=== PATIENT | female | born 1970 | race Caucasian/White ===

== ENCOUNTER 2016-09-08 19:25 | Inpatient (IN) | payer OTHER ==
--- NOTE | ~2016-09-08 | DS ---
Discharge Summary [facility] [address] [place]. [address] NAME: DOMENICO STUART : 72 STATUS : DIS IN PAT#: [id number] AGE: 46 ADM/REG DATE : 09/09/16 MR#: [id number] REPORT SERV DATE: 09/14/16 DICTATED BY: ISA LUI DATE: 09/13/16 REPORT STATUS : Draft TRANSCRIBED BY: MODL DATE: 09/13/16 ADMISSION DATE: 09/09/2016 DISCHARGE DATE: 09/13/2016 HOSPITAL COURSE: This is a 46-year-old, female. She has an unfortunate history of MTHFR gene mutation and factor V Leiden, predisposing the DVT/PE 13 years ago, at that time it was quite severe, mural thrombus necessitating open-heart surgery to remove a large cardiac blood clot years ago, diabetes, hypertension, anxiety, appendectomy, cholecystectomy, , significant smoking history, quit smoking a week prior to admission. The patient came in with increasing throat pain, hoarseness of voice, recurrent aspiration, 12-pound weight loss. She recently saw ENT physician in [place], due to inflammation was not able to do a biopsy at that time. There was evidence of some aspiration per speech pathologist subsequently on 09/06/2016, as a result she came in here. CT of the neck showed significant enlargement, abnormality, epiglottis. 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 Dr. 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 The patient thereafter had hemostasis and was determined to be able to go home. She has significant chronic pain management for low back pain, on hydrocodone at baseline, as a result as needed oxycodone sustained release here. Her white count went down. The patient is amenable for discharge with better adequate pain control today. She should follow up with [facility] and Dr. Oseguera within one to two weeks. I will have Speech and Swallow Therapy see the patient regarding swallow recommendations. She will be resumed back on her Coumadin now regarding her history of DVT/PE. Consider possible IVC filter if she were to ever bleed despite need for anticoagulation given factor V Leiden, etc. DISCHARGE MEDICATIONS: 1. Augmentin 825 mg p.o. b.i.d. for five days. 2. Januvia 50 mg p.o. q.h.s. 3. Carvedilol 6.25 mg p.o. b.i.d. 4. Lasix 80 mg p.o. daily. 5. Nicotine transdermal patch 20 mg patch daily. 6. Oxycodone Sustained Release 10 mg p.o. b.i.d. 7. Coumadin see order set. 8. Hurley 10/325 mg p.o. q.6 p.r.n. 9. Aspirin 81 mg p.o. daily. 10.Xanax 0.25 mg p.o. daily p.r.n. 11.Losartan 25 mg p.o. q.h.s. The patient had endorsed she may have had a history of stroke if that is the case she needs to be on statin, deferred her PCP. We will also have home health evaluate regarding an INR goal of 2 to 3. Discharge Summary [address] [address] NAME: DOMENICO STUART : 72 STATUS : DIS IN PAT#: [id number] AGE: 46 ADM/REG DATE : 09/09/16 MR#: [id number] REPORT SERV DATE: 09/14/16 DICTATED BY: ISA LUI DATE: 09/13/16 REPORT STATUS : Draft TRANSCRIBED BY: MODL DATE: 09/13/16 CONSULTS: ENT. PROCEDURES: See above. DISCHARGE DIAGNOSES: 1. Squamous cell carcinoma of the larynx. 2. Diabetes. 3. History of pulmonary embolism/deep venous thrombosis due to Factor V Leiden. 4. Hypertension. 5. Systemic inflammatory response syndrome. 6. Chronic pain. It took over 30 minutes to do. DICTATED BY: Isa Lui DO WST/ROBIN Isa Lui DO / [id number] CC: Isa Lui DO
--- NOTE | ~2016-09-08 | OP ---
Record Of Operation [facility] [address] [place]. [address] NAME: DOMENICO STUART : 72 STATUS : ADM IN PAT#: [id number] AGE: 46 ADM/REG DATE : 09/09/16 MR#: [id number] REPORT SERV DATE: 09/12/16 DICTATED BY: SOHAN FALCON DATE: 09/11/16 REPORT STATUS : Draft TRANSCRIBED BY: MODL DATE: 09/11/16 DATE OF PROCEDURE: 09/09/2016 PREOPERATIVE DIAGNOSIS: T3 N2c Mx squamous cell carcinoma of the supraglottic larynx. POSTOPERATIVE DIAGNOSIS: T3 N2c Mx squamous cell carcinoma of the supraglottic larynx. PROCEDURE: 1. Microdirect laryngoscopy with biopsy of the supraglottic larynx. 2. Rigid bronchoscopy. SURGEON: Sohan Falcon M.D. ANESTHESIA: General. COMPLICATIONS: None. COUNTS: All counts correct following the procedure. ESTIMATED BLOOD LOSS: 5 mL. PREOPERATIVE INFORMED CONSENT: We discussed the risks and benefits of surgery including, but not limited to bleeding, infection, possible loss of airway and , and consent is on the chart. PROCEDURE IN DETAIL: The patient was brought to the operative suite and placed on operative table in supine position. General endotracheal anesthesia was initiated without incident. The patient's head and neck was cleaned, prepped, and draped in the usual sterile fashion. Following this, a moistened gauze was placed on the upper gingiva and a Dedo laryngoscope was inserted in the oral cavity, used to inspect the oral cavity, oropharynx which was noted be clear of any mucosal lesions. Base of tongue and vallecula were inspected, and it was noted that the hypopharynx is clear, the base of tongue and vallecula were clear. In the supraglottic larynx, there was noted be a large exophytic lesion involving the left, most of the left half of the laryngeal surface of epiglottis extending onto the left aryepiglottic fold extending down to almost the false vocal folds. The true vocal cords appeared to be normal with no evidence of any mucosal lesions. The subglottic region was then visualized. A 0 degree Poe brigette was placed through the laryngoscope and the cuff was deflated on the endotracheal tube. The scope was advanced down both mainstem bronchi, and there was no evidence of any mucosal lesion from the gabriele and mainstem bronchi through the trachea. The cuff was reinflated on the endotracheal tube, and then multiple biopsies were taken from the epiglottic lesion. There was minimal bleeding which was controlled with topical Adrenalin on pledgets. The specimen was sent for frozen section, as well as permanent section came back consistent with invasive squamous cell carcinoma. The patient was then awakened by Anesthesia and taken to recovery room in stable condition. Record Of Operation [address] [place]. [address] NAME: DOMENICO STUART : 72 STATUS : ADM IN PAT#: [id number] AGE: 46 ADM/REG DATE : 09/09/16 MR#: [id number] REPORT SERV DATE: 09/12/16 DICTATED BY: SOHAN FALCON DATE: 09/11/16 REPORT STATUS : Draft TRANSCRIBED BY: ROBIN DATE: 09/11/16 SHUN/ROBIN Sohan Falcon M.D. / [id number] CC: Estephanie Sales M.D.
--- NOTE | ~2016-09-08 | HP ---
History And Physical [facility] [address] [place]. [address] NAME: DOMENICO STUART : 72 STATUS : ADM [facility]#: [id number] AGE: 46 ADM/REG DATE : 09/09/16 MR#: [id number] REPORT SERV DATE: 09/09/16 DICTATED BY: BERKLEY SALOMON DATE: 09/09/16 REPORT STATUS : Draft TRANSCRIBED BY: MODL DATE: 09/09/16 DATE OF ADMISSION: 09/09/2016 CHIEF COMPLAINT: A 46-year-old female presenting with increasing throat pain. hoarseness of voice, and now recurrent aspiration. HISTORY OF PRESENTING ILLNESS: The patient's history was obtained through careful interview with the patient and her . The patient first began to notice a soreness in her throat intermittently about 13 months ago, but it was not until the last few months that it has become increasingly debilitating. She has had about a 12-pound weight loss over the last five weeks. Finally, she was able to see an Ear, Nose, and Throat physician in [place], [place], who was able to do a simple scope in the office and states that she had inflammation and abnormality, but did not feel comfortable or was not able to do a biopsy at the time of this investigation, and scheduled her for a followup on 09/25/2016. Also on 09/06/2016, the patient went to a speech pathologist in [place], [place], and had a swallow evaluation that apparently showed some evidence of aspiration. The patient has noticed that she aspirates and chokes on food quite frequently over the last four or five weeks. She also has occasional nausea and vomiting related to irritation of attempts at eating and swallowing food. She describes increasing pain in her throat; a burning, aching pain that she describes "like a blister that you are pouring lemon juice on" up to 9/10 severity, worsened on the left side compared to the right. She has had a nonproductive cough, a deepening of her voice along with hoarseness. She claims her diabetes is under good control. No shortness of breath. No abdominal pain. REVIEW OF SYSTEMS: Otherwise, a 14-point review of systems was obtained and was negative. PAST MEDICAL HISTORY: 1. DVT/pulmonary embolism 13 years ago, quite severe. 2. MTHFR gene mutation and factor V Leiden mutation. 3. Mural thrombus necessitating an open heart surgery to remove a large cardiac blood clot. 4. Congestive heart failure. 5. Diabetes. 6. Hypertension. 7. Anxiety. PAST SURGICAL HISTORY: History And Physical [facility] [address] [place]. [address] NAME: DOMENICO STUART : 72 STATUS : ADM IN PAT#: [id number] AGE: 46 ADM/REG DATE : 09/09/16 MR#: [id number] REPORT SERV DATE: 09/09/16 DICTATED BY: BERKLEY SALOMON DATE: 09/09/16 REPORT STATUS : Draft TRANSCRIBED BY: ROBIN DATE: 09/09/16 1. Reported open-heart surgery to remove an intracardiac blood clot. 2. Appendectomy. 3. Cholecystectomy. 4. . ALLERGIES: CLINDAMYCIN. SOCIAL HISTORY: Quit smoking a week ago, on a nicotine patch. No alcohol use. Is . Lives in [place], [place]. Has four children ages 9, 18, 23, and 27. FAMILY HISTORY: There are multiple family members with pulmonary embolism and hypercoagulable state, a daughter with factor V Leiden, a cousin with pulmonary embolism, sister with pulmonary embolism, maternal aunt with pulmonary embolism, and father with pulmonary embolism. CURRENT MEDICATIONS: Include Xanax 0.5 to 1 mg p.o. b.i.d. as needed, aspirin 81 mg p.o. daily, Coreg 6.25 mg p.o. b.i.d., Lasix 80 mg p.o. daily, hydrocodone p.r.n., nicotine patch, Januvia 50 mg p.o. daily, some blood pressure medication, vitamin D, and Coumadin 5 mg p.o. daily. PHYSICAL EXAMINATION: VITAL SIGNS: Temperature 98.3, pulse 115, blood pressure 130/96, respiratory rate 19, O2 saturation 98% on room air. GENERAL: A pleasant, cooperative female describing distress from sore throat. HEENT: Pupils equal, round, and reactive to light. No conjunctival pallor. No scleral icterus. Nares are patent. Oropharynx is clear of obstruction. No intraoral lesions from superficial exam. NECK: Trachea midline. No thyromegaly. LYMPH: No cervical lymphadenopathy. No supraclavicular lymphadenopathy. RESPIRATORY: Clear to auscultation at bases. No stridor. No wheezes, rales, or rhonchi. Normal respiratory effort. CARDIOVASCULAR: Tachycardic regular rhythm. No murmurs, rubs, or gallops. No extremity edema is appreciated. ABDOMEN: Soft, nontender, nondistended. Normal bowel sounds auscultated throughout. No hepatosplenomegaly. DERMATOLOGICAL: Warm and dry. EXTREMITIES: No pallor, no cyanosis. PSYCHIATRIC: Normal affect. Good mood. Alert and oriented x3. LABORATORY DATA: White blood cell count 12, hemoglobin 14, hematocrit 43, platelets 306. Sodium 138, potassium 3.4, chloride 101, bicarb 31, BUN 16, creatinine 1.06, glucose 143, INR 1.2. Liver enzymes within normal limits. STUDIES: CT scan of the neck shows significant enlargement and abnormality of the epiglottis of undetermined significance and origin. ASSESSMENT AND PLAN: History And Physical [address] [address] NAME: DOMENICO STUART : 72 STATUS : ADM [facility]#: [id number] AGE: 46 ADM/REG DATE : 09/09/16 MR#: [id number] REPORT SERV DATE: 09/09/16 DICTATED BY: BERKLEY SALOMON DATE: 09/09/16 REPORT STATUS : Draft TRANSCRIBED BY: ROBIN DATE: 09/09/16 1. Epiglottis mass with a differential diagnosis of an atypical chronic epiglottitis. We will obtain an Ear, Nose, and Throat consult for biopsy. Check an ESR, CRP, procalcitonin, and place on continuous O2 saturation monitor. 2. Diabetes. Check hemoglobin A1c. Place on sliding scale insulin. 3. Anxiety. P.r.n. benzodiazepines. 4. Aspiration. Have our speech therapist evaluate the patient here. 5. History of pulmonary embolism with an MTHFR gene mutation and factor V Leiden. Subtherapeutic INR right now, but we will hold Coumadin for an epiglottis biopsy and then we will need to likely bridge with heparin IV because of severe history of pulmonary embolism and hypercoagulable state. BRIENL/MODL Berkley Salomon M.D. / [id number] CC: Estephanie Sales M.D.
[2016-09-09 00:02] LABS: BASOPHILS 0.2 %; BASOPHILS ABSOLUTE 0.03 10/3/uL (0.0-0.16); EOSINOPHILS 2.8 %; EOSINOPHILS ABSOLUTE 0.34 10/3/uL (0.0-0.53); ER CBC TAT 0 Hrs 05 Mins; HEMOGLOBIN 14.5 g/dL (12.0-16.0); IMMATURE GRANULOCYTES 0.2 %; IMMATURE GRANULOCYTES ABSOLUTE 0.02 10/3/uL (0.0-0.11); LYMPHOCYTES 32.3 %; LYMPHOCYTES ABSOLUTE 3.88 10/3/uL (0.67-4.30); MANUAL DIFF NO %; MEAN CORPUS HGB CONC 33.7 g/dL (32.0-36.0); MEAN CORPUSCULAR HEMOGLOB 30.8 pg (26.0-34.0); MEAN CORPUSCULAR VOLUME 91.3 fL (80-100); MEAN PLATELET VOLUME 10.1 fL (9.2-13.0); MONOCYTES 4.2 %; MONOCYTES ABSOLUTE 0.51 10/3/uL (0.21-1.20); NEUTROPHILS 60.3 %; NEUTROPHILS ABSOLUTE 7.25 10/3/uL (2.02-8.40); PLATELET COUNT 306 10/3/uL (150-400); RBC DISTRIBUTION WIDTH 14.2 % (12.0-16.0); RED CELL COUNT 4.71 10/6/uL (4.0-5.6)
[2016-09-09 00:16] LABS: A/G RATIO 0.9 (0.7-1.9); ALBUMIN 3.7 G/DL (3.5-5.0); ALKALINE PHOSPHATASE 96 U/L (45-117); BUN (BLOOD UREA NITROGEN) 16 MG/DL (6-23); CALCIUM, SERUM 10.1 MG/DL (8.5-10.4); CHLORIDE, SERUM 101 MMOL/L (96-112); CO2 (CARBON DIOXIDE) 31 MMOL/L (24-34); CREATININE 1.06 MG/DL (0.55-1.02); GFR AFRICAN AMERICAN 73 ML/MIN (>=60); GFR NON AFRICAN AMERICAN 63 ML/MIN (>=60); GLOBULIN 4.1 G/DL (2.5-4.1); GLUCOSE, SERUM 143 MG/DL (60-99); POTASSIUM, SERUM 3.4 MMOL/L (3.5-5.3); SGOT(AST) 34 U/L (5-40); SGPT(ALT) 41 U/L (5-65); SODIUM, SERUM 138 MMOL/L (135-148); TOTAL BILIRUBIN 0.2 MG/DL (0-1.2); TOTAL PROTEIN 7.8 G/DL (6.0-8.5)
[2016-09-09 00:17] LABS: INTERNATIONAL NORMAL RATI 1.2 UNITS (-); PROTIME (NOT ORD) 14.9 SEC (12.0-14.5)
[2016-09-09] MEDS ORDERED: COREG6 PO (01:46)
[2016-09-09] MEDS ORDERED: L80 PO (01:46)
[2016-09-09] MEDS ORDERED: JANUVIA50 PO (01:46)
[2016-09-09] MEDS ORDERED: [UNRECOGNIZED DRUG - REMARK] PO (01:47)
[2016-09-09] MEDS ORDERED: ASAB PO (01:48)
[2016-09-09] MEDS ORDERED: X5 PO (01:48)
[2016-09-09] MEDS ORDERED: NORCO1 TAB PO (01:48)
[2016-09-09] MEDS ORDERED: VITAMIN D OTC PO (01:49)
[2016-09-09] MEDS ORDERED: HABIT21 TOP (01:49)
[2016-09-09] MEDS ORDERED: C5 PO (02:00)
[2016-09-09 08:00] LABS: PROCALCITONIN <0.05 ng/mL (<0.5)
[2016-09-09] MEDS ORDERED: COZ25 PO (10:48)
[2016-09-10 06:53] LABS: BASOPHILS 0.1 %; BASOPHILS ABSOLUTE 0.01 10/3/uL (0.0-0.16); EOSINOPHILS 0.1 %; EOSINOPHILS ABSOLUTE 0.01 10/3/uL (0.0-0.53); HEMATOCRIT 41.8 % (36.0-48.0); IMMATURE GRANULOCYTES 0.3 %; IMMATURE GRANULOCYTES ABSOLUTE 0.05 10/3/uL (0.0-0.11); LYMPHOCYTES 6.6 %; LYMPHOCYTES ABSOLUTE 1.28 10/3/uL (0.67-4.30); MANUAL DIFF NO %; MEAN CORPUS HGB CONC 33.5 g/dL (32.0-36.0); MEAN CORPUSCULAR HEMOGLOB 30.4 pg (26.0-34.0); MEAN CORPUSCULAR VOLUME 90.7 fL (80-100); MEAN PLATELET VOLUME 10.2 fL (9.2-13.0); MONOCYTES 0.8 %; MONOCYTES ABSOLUTE 0.15 10/3/uL (0.21-1.20); NEUTROPHILS 92.1 %; NEUTROPHILS ABSOLUTE 17.96 10/3/uL (2.02-8.40); PLATELET COUNT 294 10/3/uL (150-400); RED CELL COUNT 4.61 10/6/uL (4.0-5.6); WHITE BLOOD CELLS 19.5 10/3/uL (4.5-10.5)
[2016-09-10 07:16] LABS: A/G RATIO 0.8 (0.7-1.9); ALBUMIN 3.2 G/DL (3.5-5.0); ALKALINE PHOSPHATASE 86 U/L (45-117); BUN (BLOOD UREA NITROGEN) 13 MG/DL (6-23); CALCIUM, SERUM 9.5 MG/DL (8.5-10.4); CHLORIDE, SERUM 107 MMOL/L (96-112); CO2 (CARBON DIOXIDE) 22 MMOL/L (24-34); FREE T4 1.05 NG/DL (0.76-1.46); GFR AFRICAN AMERICAN 89 ML/MIN (>=60); GFR NON AFRICAN AMERICAN 77 ML/MIN (>=60); GLOBULIN 4.2 G/DL (2.5-4.1); GLUCOSE, SERUM 250 MG/DL (60-99); POTASSIUM, SERUM 4.2 MMOL/L (3.5-5.3); SGOT(AST) 25 U/L (5-40); SGPT(ALT) 37 U/L (5-65); SODIUM, SERUM 138 MMOL/L (135-148); TOTAL BILIRUBIN 0.2 MG/DL (0-1.2); TOTAL PROTEIN 7.4 G/DL (6.0-8.5); ULTRASENSITIVE TSH 0.166 MCIU/ML (0.358-3.740)
[2016-09-11 05:41] LABS: HEMATOCRIT 41.3 % (36.0-48.0); HEMOGLOBIN 13.7 g/dL (12.0-16.0); MEAN CORPUS HGB CONC 33.2 g/dL (32.0-36.0); MEAN CORPUSCULAR HEMOGLOB 30.6 pg (26.0-34.0); MEAN CORPUSCULAR VOLUME 92.4 fL (80-100); MEAN PLATELET VOLUME 10.2 fL (9.2-13.0); PLATELET COUNT 320 10/3/uL (150-400); RBC DISTRIBUTION WIDTH 14.2 % (12.0-16.0); RED CELL COUNT 4.47 10/6/uL (4.0-5.6)
[2016-09-11 05:50] LABS: MANUAL DIFF YES %
[2016-09-11 05:59] LABS: BUN (BLOOD UREA NITROGEN) 16 MG/DL (6-23); CHLORIDE, SERUM 104 MMOL/L (96-112); CREATININE 0.94 MG/DL (0.55-1.02); GFR AFRICAN AMERICAN 85 ML/MIN (>=60); GFR NON AFRICAN AMERICAN 73 ML/MIN (>=60); POTASSIUM, SERUM 3.8 MMOL/L (3.5-5.3); SODIUM, SERUM 139 MMOL/L (135-148)
[2016-09-11 06:05] LABS: CO2 (CARBON DIOXIDE) 27 MMOL/L (24-34); GLUCOSE, SERUM 189 MG/DL (60-99)
[2016-09-11 07:21] LABS: BAND NEUTROPHILS 2 %; LYMPHOCYTES 9 %; LYMPHOCYTES ABSOLUTE (CALC) 2.25 10/3/uL (0.67-4.30); MONOCYTES 4 %; NEUTROPHILS ABSOLUTE (CALC) 21.75 10/3/uL (2.02-8.40); PLATELET ESTIMATE ADQ (ADEQUATE); RBC MORPHOLOGY NORM (NORMAL); SEGMENTED NEUTROPHIL (0) 85 %; TOTAL NUCLEATED CELLS 100
[2016-09-11 14:31] LABS: B NATRIURETIC PEPTIDE (BNP) 46.4 PG/ML (< 100.0)
[2016-09-11 21:36] LABS: GLYCOHEMOGLOBIN (HbA1c) 7.1 % (4.7-6.1)
[2016-09-12 06:28] LABS: BUN (BLOOD UREA NITROGEN) 21 MG/DL (6-23); CALCIUM, SERUM 9.7 MG/DL (8.5-10.4); CHLORIDE, SERUM 102 MMOL/L (96-112); CO2 (CARBON DIOXIDE) 25 MMOL/L (24-34); CREATININE 1.16 MG/DL (0.55-1.02); GFR AFRICAN AMERICAN 66 ML/MIN (>=60); GFR NON AFRICAN AMERICAN 57 ML/MIN (>=60); GLUCOSE, SERUM 245 MG/DL (60-99); SODIUM, SERUM 137 MMOL/L (135-148)
[2016-09-12 06:38] LABS: INTERNATIONAL NORMAL RATI 1.1 UNITS (-); PROTIME (NOT ORD) 14.3 SEC (12.0-14.5)
[2016-09-12 06:52] LABS: BASOPHILS 0.1 %; EOSINOPHILS 0 %; HEMATOCRIT 39.4 % (36.0-48.0); HEMOGLOBIN 13.2 g/dL (12.0-16.0); LYMPHOCYTES 9.1 %; LYMPHOCYTES ABSOLUTE 1.3 10/3/uL (0.7-4.3); MEAN CORPUS HGB CONC 33.4 g/dL (32.0-36.0); MEAN CORPUSCULAR HEMOGLOB 30.4 pg (26.0-34.0); MEAN PLATELET VOLUME 8.9 fL (6.8-10.8); MONOCYTES 3.3 %; MONOCYTES ABSOLUTE 0.5 10/3/uL (0.2-1.2); NEUTROPHILS 87.5 %; PLATELET COUNT 280 10/3/uL (150-400); RBC DISTRIBUTION WIDTH 14.8 % (12.0-16.0); RED CELL COUNT 4.33 10/6/uL (4.0-5.6)
[2016-09-12 06:58] LABS: MANUAL DIFF NO %; WHITE BLOOD CELLS 14.9 10/3/uL (4.5-10.5)
[2016-09-13 06:41] LABS: PROTIME (NOT ORD) 13.1 SEC (12.0-14.5)
[2016-09-13] MEDS ORDERED: X25 PO (12:16)
[2016-09-13] MEDS ORDERED: HALF81 PO (12:17)
[2016-09-13] MEDS ORDERED: AUG875 PO (12:18)
[2016-09-13] MEDS ORDERED: ZOFRAN4 PO (12:19)
[2016-09-13] MEDS ORDERED: OXYCON10 PO (12:20)
[2016-09-13] MEDS ORDERED: MELA3 PO (12:21)
== END 2016-09-13 15:04 | disposition home or self-care (01) | DRG 147 ==
LOC: ER 19:25 → 5SO 09-09 01:57
PROVIDERS: Emergency Medicine; Hospitalist; Internal Medicine; Otolaryngology
PROC: 0CBS8ZX Excision of Larynx, Via Natural or Artificial Opening Endoscopic, Diagnostic (ICD-10-PCS; 2016-09-11)
PROC: 0BJ08ZZ Inspection of Tracheobronchial Tree, Via Natural or Artificial Opening Endoscopic (ICD-10-PCS; principal; 2016-09-11 12:30)
DX: C32.1 Malignant neoplasm of supraglottis (principal); D68.51 Activated protein C resistance; J37.0 Chronic laryngitis; E11.9 Type 2 diabetes mellitus without complications; F41.9 Anxiety disorder, unspecified; Z86.711 Personal history of pulmonary embolism; Z79.01 Long term (current) use of anticoagulants; Z79.82 Long term (current) use of aspirin; Z79.891 Long term (current) use of opiate analgesic; Z90.49 Acquired absence of other specified parts of digestive tract; Z98.890 Other specified postprocedural states; I10 Essential (primary) hypertension; Z88.1 Allergy status to other antibiotic agents; Z79.84 Long term (current) use of oral hypoglycemic drugs; G89.29 Other chronic pain; Z87.891 Personal history of nicotine dependence; F31.9 Bipolar disorder, unspecified
CPT/HCPCS: 70491; 80048; 80053; 82962; 83036; 83880; 84145; 84439; 84443; 84481; 85025; 85610; 85652; 86140; 88305; 88331; 88342; 94640; 99285; A9270-GY; J0330; J0456; J2250; J2405; J2930; J3010; Q9967